=== PATIENT | female | born 1980 | race Caucasian/White ===

== ENCOUNTER 2021-04-17 16:33 | Outpatient (CLI) | payer OTHER, SELFPAY ==
--- NOTE | ~2021-04-17 | MM_ITS ---
EXAMINATION: MM scrn rachana implant BI w rosa maria HISTORY: Screening mammogram TECHNIQUE: Craniocaudal and mediolateral oblique 3-D tomosynthesis images with implant displacement a nd synthetic 2-D images were generated. Craniocaudal and mediolateral oblique views of the breasts wi thout implant displacement were obtained using full field digital mammography. CAD analysis was submi tted and interpreted. COMPARISON: No prior mammogram is available for comparison at this institution. BREAST PARENCHYMAL COMPOSITION: There are scattered areas of fibroglandular density. FINDINGS: There is no evidence of suspicious mass, calcification, or architectural distortion to sugg est malignancy in either breast. There has been no suspicious interval change. IMPRESSION: 1. No mammographic evidence of malignancy. 2. Recommend routine screening mammography in one year. BI-RADS Category 1: Negative Reviewed, dictated and finalized at location A.
== END 2021-04-17 16:34 ==
PROVIDERS: PCP Nurse Practitioner Family; Visit Provider Nurse Practitioner Obstetrics & Gynecology
DX: Z12.31 Encounter for screening mammogram for malignant neoplasm of breast (principal)
CPT/HCPCS: 77063; 77067

== ENCOUNTER → 2022-08-06 14:08 | Outpatient (CLI) | payer OTHER, SELFPAY ==
--- NOTE | ~2022-08-06 | MM_ITS ---
EXAMINATION: MM scrn rachana implant BI w rosa maria HISTORY: Screening mammogram TECHNIQUE: Craniocaudal and mediolateral oblique 3-D tomosynthesis images with implant displacement a nd synthetic 2-D images were generated. Craniocaudal and mediolateral oblique views of the breasts wi thout implant displacement were obtained using full field digital mammography. CAD analysis was submi tted and interpreted. COMPARISON: 04/17/2021 BREAST PARENCHYMAL COMPOSITION: There are scattered areas of fibroglandular density. FINDINGS: There is no evidence of suspicious mass, calcification, or architectural distortion to sugg est malignancy in either breast. There has been no suspicious interval change. IMPRESSION: 1. No mammographic evidence of malignancy. 2. Recommend routine screening mammography in one year. BI-RADS Category 1: Negative Reviewed, dictated and finalized at location A.
== END ==
PROVIDERS: PCP Nurse Practitioner Family; Visit Provider Nurse Practitioner Obstetrics & Gynecology
DX: Z12.31 Encounter for screening mammogram for malignant neoplasm of breast (principal)
CPT/HCPCS: 77063; 77067

== ENCOUNTER 2024-07-12 10:44 | Emergency (ER) | payer OTHER, SELFPAY ==
[2024-07-12 10:48] VITALS: BP 113/64; PULSE 74; RESP 20; TEMP 36.8; O2SAT 100
--- NOTE | 2024-07-12 11:08 | ED.URI ---
HPI - URI/Sore Throat General Chief Complaint: Ear Stated Complaint: Cough/Sinus Time Seen by Provider: 07/12/24 11:09 Source: patient, RN notes reviewed and old records reviewed Mode of arrival: ambulatory Limitations: no limitations History of Present Illness HPI Narrative: Patient presents with complaints of 9 days of URI symptoms. She complains of cough, sinus pain and congestion, runny nose, sore throat. She denies any fever, chills, sweats. She does report that she is more tired than normal. She states now symptoms have localized to the right side of the face. She denies any injury or trauma. She has been taking multiple [id number] medications without much help. Related Data Home Medications Medication Instructions Recorded Confirmed albuterol sulfate 90 mcg/actuation 2 puff inhalation Q4-6H PRN 07/12/24 07/12/24 aerosol inhaler SOB/wheezing Allergies Allergy/AdvReac Type Severity Reaction Status Date / Time Cephalosporins Allergy Mild swelling , Verified 07/12/24 10:58 hives morphine Allergy Mild Hives Verified 07/12/24 10:58 cefaclor Allergy Unknown Hives Verified 07/12/24 10:58 clarithromycin Allergy Unknown Hives Verified 07/12/24 10:58 nitrofurantoin Allergy Unknown Hives Verified 07/12/24 10:58 Penicillins Allergy Unknown Hives Verified 07/12/24 10:58 Sulfa (Sulfonamide Allergy Unknown Hives Verified 07/12/24 10:58 Antibiotics) vancomycin Allergy Unknown Hives Verified 07/12/24 10:58 amoxicillin Allergy Hives Verified 07/12/24 11:22 Review of Systems Review of Systems: All systems reviewed & are unremarkable except as noted in HPI and below Constitutional: Constitutional: Reports no additional constitutional complaints ENT: Reports system reviewed and no additional complaints, except as documented and Reports as per HPI Cardiovascular: Cardiovascular: Reports as per HPI and Reports no additional cardiovascular complaints Respiratory: Respiratory: Reports as per HPI and Reports no additional respiratory complaints Gastrointestinal: Gastrointestinal: Reports no additional gastrointestinal complaints [facility] Family History Family History Sibling Family history of diabetes mellitus in first degree relative Mother Family history of coronary artery disease Social History Social History Smoking status: Former smoker Smoking end date: 10/28/04 Alcohol intake: never Comments At the time of my signature, I reviewed and agree with the nursing past medical, surgical, social, and family history. There is no relevant family history pertinent to the patient complaint. Exam Const: General: cooperative, no acute distress, alert and awake Orientation/consciousness: oriented to person, oriented to place and oriented to time HENMT: Head: normal to inspection Ears: TM abnormal with fluid behind the TM bilateral Face/Nose/Sinus: sinus tenderness and Facial tenderness on exam of face and sinuses Mouth: Yes moist mucous membranes Throat: posterior oropharynx abnormal erythema and postnasal drainage Resp: Effort & Inspection: normal respiratory effort and able to speak in complete sentences Auscultation: clear to auscultation bilaterally, no crackles, no rales, no rhonchi and no wheezes Cardio: Palpation: normal PMI Rate: regular rate Rhythm: regular rhythm Heart sounds: S1 normal heart sound present and S2 normal heart sound present Neuro: General: oriented to person, oriented to place and oriented to time Cranial nerves: Yes CN's II-XII intact bilaterally Psych: Appearance: grossly normal Thought process: Normal thought process present Insight: Good insight present (Psych) Judgement: Good judgement present (Psych) Course Course Level of Care: Express Care Visit Vital Signs Vital signs: Vital Signs Temperature 98.3 F 07/12/24 10:48 Pulse Rate 74 07/12/24
== END 2024-07-12 11:33 | disposition home or self-care (01) ==
PROVIDERS: Emergency Provider Nurse Practitioner Family; PCP Nurse Practitioner Family
DX: J01.00 Acute maxillary sinusitis, unspecified (principal); Z87.891 Personal history of nicotine dependence
CPT/HCPCS: 99213; G0463

== ENCOUNTER 2024-10-19 10:49 | Outpatient (CLI) | payer OTHER, SELFPAY ==
--- NOTE | ~2024-10-19 | MM_ITS ---
EXAMINATION TYPE: MM scrn rachana implant BI w rosa maria COMPARISON: 08/06/2022 and 04/17/2021 REASON FOR STUDY: 43-year-old woman with a significant family history of breast cancer diagnosed in patient's maternal aunt in her 30s and 40s. Bilateral retropectoral saline implants, placed in early 1999. TECHNIQUE: Bilateral mediolateral oblique and craniocaudal views were obtained digitally with 3-D ma mmogram (digital breast tomosynthesis) with CAD. Computer-aided detection was utilized in evaluation of this examination. Implant displaced views were also performed. BREAST PARENCHYMAL COMPOSITION:Not Dense. There are scattered areas of fibroglandular density. FINDINGS: Stable parenchymal pattern without discrete mass, architectural distortion or suspicious microcalcifi cations. Punctate calcifications detected bilaterally, right greater than left, stable and benign in appearanc e. IMPRESSION: No mammographic or tomographic evidence to suggest the presence of malignancy BI-RADS CATEGORY: 2: Benign findings RECOMMENDATION: Yearly mammography. Reviewed, dictated and finalized at location A. [employer]
== END 2024-10-19 10:50 | disposition home or self-care (01) ==
LOC: MICIMG 10:49
PROVIDERS: PCP Nurse Practitioner Family; Visit Provider Obstetrics & Gynecology
DX: Z12.31 Encounter for screening mammogram for malignant neoplasm of breast (principal)
CPT/HCPCS: 77063; 77067